=== PATIENT | male | born 1980 | race Caucasian/White ===

== ENCOUNTER 2021-11-20 15:04 | Emergency (ER) | payer OTHER ==
[~2021-11-20 15:04] MED LIST: ASPIRIN325 MG PO; CYMBALTA 30MG C30 MG PO; PERCOCET 5-3251 EACH PO
[2021-11-20 15:43] LABS: BASOPHIL 0.6 % (0-2); EOSINOPHIL 0.9 % (0-5); HGB 15.9 g/dl (13.2-18.0); LYMPHOCYTE 31.8 % (15-48); MCH 32.4 pg (25.0-31.0); MCHC 36.1 g/dL (32.0-36.0); MCV 89.6 fL (78.0-100.0); MONOCYTE 7.5 % (0-12); MPV 9.5 fL (6.0-9.5); NEUTROPHIL 58.8 % (41-80); NRBC 0; PLT 374 K/uL (150-400); RBC 4.91 M/uL (4.70-6.00); RDW 12.1 % (11.5-14.0); WBC 11.1 K/uL (4.0-10.5)
[2021-11-20 16:17] LABS: ALBUMIN 4.4 g/dL (3.4-5.0); BILIRUBIN - TOTAL 0.3 mg/dL (0.2-1.0); BUN/CREAT RATIO (CALC) 11.2 RATIO; CREATININE 1.07 mg/dL (0.67-1.17); FT4 (FREE T4) 1.2 ng/dL (0.76-1.46); GLOBULIN (CALCULATION) 3.3 g/dL; MAGNESIUM 1.8 mg/dL (1.8-2.4); POTASSIUM 3.2 mmol/L (3.5-5.1); TOTAL PROTEIN 7.7 g/dL (6.4-8.2)
[2021-11-20 17:18] LABS: BILIRUBIN NEGATIVE (NEGATIVE); BLOOD 1+ Ery/uL (NEGATIVE); CLARITY CLEAR (CLEAR); COLOR YELLOW (YELLOW); GLUCOSE (U) NORMAL (NORMAL); LEUKOCYTES NEGATIVE Leu/uL (NEGATIVE); NITRITE NEGATIVE (NEGATIVE); PROTEIN NEGATIVE (NEGATIVE); UROBILINOGEN 0.2 mg/dL (0.2-1.0); pH 8.5 (5.0-9.0)
[2021-11-20 17:22] LABS: AMPHETAMINES NEGATIVE (NEGATIVE); BARBITURATES NEGATIVE (NEGATIVE); ECSTASY (MDMA) NEGATIVE (NEGATIVE); MARIJUANA (THC) POSITIVE (NEGATIVE); METHADONE NEGATIVE (NEGATIVE); OPIATES NEGATIVE (NEGATIVE); OXYCODONE NEGATIVE (NEGATIVE)
[2021-11-20 17:27] LABS: URINARY WBC RARE
[2021-11-20] MEDS ORDERED: ATIVAN1 MG PO (18:53)
== END 2021-11-20 19:03 | disposition home or self-care (01) ==
LOC: FER 15:04
PROVIDERS: Emergency Medicine
DX: F45.8 Other somatoform disorders (principal); F41.9 Anxiety disorder, unspecified
CPT/HCPCS: 36415; 36600; 70450; 71045; 80053; 80305; 81001; 82550; 82803; 83735; 83880; 84145; 84439; 84443; 84484; 85025; 93005; J2060; J2405